=== PATIENT | male | born 1965 | race African-American/Black ===

== ENCOUNTER → 2016-08-30 | Outpatient (CLI) | payer OTHER ==
--- NOTE | 2016-08-30 12:54 | RAD ---
Scrotal ultrasound, 08/30/2016: History: Right testicular pain The right testicle measures 4.9 x 3.2 x 3.4 cm while the left testicle measures 5.3 x 3.7 x 2.6 cm. No testicular mass is seen. There is symmetric blood flow within the testicles. There is a large right hydrocele. No epididymal abnormality is detected. IMPRESSION: 1. No testicular abnormality is detected. 2. Large right hydrocele.
== END | disposition home or self-care (01) ==
LOC: US 09:17
PROVIDERS: ATTEND Family Medicine
DX: N50.811 Right testicular pain (principal)
CPT/HCPCS: 76870

== ENCOUNTER → 2017-08-20 | Outpatient (CLI) | payer BC | END | disposition home or self-care (01) | LOC: KCIC 12:49 | DX: J01.00 Acute maxillary sinusitis, unspecified (principal) | CPT/HCPCS: 70210 ==

== ENCOUNTER → 2017-12-21 | Day surgery (SDC) | payer BC ==
[~2017-12-21] MED LIST: LIDOCAINE 2% PF Vial for OR 5 ML VIAL.; PROPOFOL 40 ML IV
[2017-12-21 07:43] LABS: POC GLUCOSE 146 mg/dL (70-99)
== END | disposition home or self-care (01) ==
LOC: SURG 07:06
DX: Z12.11 Encounter for screening for malignant neoplasm of colon (principal); K57.30 Diverticulosis of large intestine without perforation or abscess without bleeding; K64.0 First degree hemorrhoids; I10 Essential (primary) hypertension; E11.9 Type 2 diabetes mellitus without complications; K21.9 Gastro-esophageal reflux disease without esophagitis; E78.5 Hyperlipidemia, unspecified; F32.9 Major depressive disorder, single episode, unspecified; F41.9 Anxiety disorder, unspecified; M19.90 Unspecified osteoarthritis, unspecified site; Z90.49 Acquired absence of other specified parts of digestive tract; Z98.890 Other specified postprocedural states; Z79.899 Other long term (current) drug therapy; Z79.84 Long term (current) use of oral hypoglycemic drugs; Z72.89 Other problems related to lifestyle; F17.200 Nicotine dependence, unspecified, uncomplicated; Z83.3 Family history of diabetes mellitus; Z82.49 Family history of ischemic heart disease and other diseases of the circulatory system
CPT/HCPCS: 45378; 82962; J2704

== ENCOUNTER → 2019-04-29 | Outpatient (CLI) | payer BC, OTHER ==
[2017-12-21 09:15] VITALS: BP 146/89
[~2019-04-29] MED LIST changes: +AMLO5TAB10 PO; +BUPR300T4 PO; +DAPA1TAB3 PO; -LIDOCAINE 2% PF Vial for OR 5 ML VIAL.; +LOSA100T14 PO; +MELO15TA23 PO; +PANT40GR PO; -PROPOFOL 40 ML IV; +TEST5GEL TP
--- NOTE | 2019-04-29 12:08 | CARD ---
MR#: [id number] Date of Study: 04/29/2019 Ordering Physician: KAT ESPINO, Referring Physician: KAT ESPINO, Tech: Jessica Carpio KRIS APPROVED REPORT EXAM: Two-dimensional and M-mode echocardiogram with Doppler and color Doppler. Other Information Quality : AverageHR: 66bpm Rhythm : NSR INDICATION Hypertension/HCVD 2D DIMENSIONS RVDd3.5 (2.9-3.5cm)Left Atrium(2D)3.5 (1.6-4.0cm) IVSd1.3 (0.7-1.1cm)Aortic Root(2D)3.3 (2.0-3.7cm) LVDd5.3 (3.9-5.9cm)LVOT Diameter2.0 (1.8-2.4cm) PWd1.2 (0.7-1.1cm)LVDs3.9 (2.5-4.0cm) FS (%) 25.2 %SV66.0 ml M-Mode DIMENSIONS Left Atrium(MM)3.91 (2.5-4.0cm)Aortic Root3.58 (2.2-3.7cm) Aortic Valve AoV Peak Dominic.171.6cm/sAoV VTI29.8cm AO Peak GR.11.8mmHgLVOT Peak Dominic.74.4cm/s AO Mean GR.5mmHgAVA (VMAX)1.42cm2 RACHELLE (VTI)1.50cm2 Mitral Valve MV E Xpqismnf32.7cm/sMV DECEL [id number] MV A Jzmyubbw30.1cm/sE/A Ratio1.2 Pulmonary Valve PV Peak Mvnlmiig175.5cm/s LEFT VENTRICLE The left ventricle is normal size. There is borderline concentric left ventricular hypertrophy. Left ventricle systolic function is normal. The Ejection Fraction is 55-60%. There is normal LV segmental wall motion. Transmitral Doppler flow pattern is Grade II-pseudonormal filling dynamics. RIGHT VENTRICLE The right ventricle is borderline dilated. There is normal right ventricular wall thickness. The righ t ventricular systolic function is normal. ATRIA The left atrium is borderline dilated. The right atrium is mildly dilated. The interatrial septum is intact with no evidence for an atrial septal defect or patent foramen ovale as noted on 2-D or Dopple r imaging. AORTIC VALVE The aortic valve is thickened but opens well. The aortic valve is trileaflet. Doppler and Color Flow revealed no significant aortic regurgitation. There is no significant aortic valvular stenosis. There is no aortic valvular vegetation. MITRAL VALVE The mitral valve is normal in structure and function. There is no evidence of mitral valve prolapse. There is no mitral valve stenosis. Doppler and Color Flow revealed no mitral valve regurgitation note d. TRICUSPID VALVE The tricuspid valve is normal in structure and function. Doppler and Color Flow revealed no tricuspid valve regurgitation noted. There is no tricuspid valve prolapse or vegetation. There is no tricuspid valve stenosis. PULMONIC VALVE The pulmonic valve is not well visualized. GREAT VESSELS The aortic root is normal in size. The ascending aorta is normal in size. The IVC is normal in size a nd collapses >50% with inspiration. PERICARDIAL EFFUSION There is no evidence of significant pericardial effusion. Critical Notification Critical Value: No <Conclusion> The left ventricle is normal size. Left ventricle systolic function is normal. The Ejection Fraction is 55-60%. There is borderline concentric left ventricular hypertrophy. There is no significant aortic valvular stenosis. Doppler and Color Flow revealed no significant aortic regurgitation. Doppler and Color Flow revealed no mitral valve regurgitation noted. Doppler and Color Flow revealed no tricuspid valve regurgitation noted. Signed by : Gelacio Simmons MD Electronically Approved : 04/29/2019 12:07:42
== END | disposition home or self-care (01) ==
LOC: ECHO 11:23
PROVIDERS: ATTEND Internal Medicine Cardiovascular Disease
DX: I11.9 Hypertensive heart disease without heart failure (principal); G47.33 Obstructive sleep apnea (adult) (pediatric)
CPT/HCPCS: 93306

== ENCOUNTER → 2019-05-01 | Outpatient (CLI) | payer BC, OTHER ==
[2017-12-21 09:15] VITALS: BP 146/89
--- NOTE | 2019-05-05 08:55 | RAD ---
MR#: [id number] Date of Study: 05/01/2019 Ordering Physician: KAT ESPINO, Referring Physician: KAT ESPINO, Tech: Dorita Bhatt RDMS, RVT, RTR APPROVED REPORT Patient Location: OUT-PATIENT Indications Uncontrolled HTN Technically difficult study. The right kidney demonstrates mild hydronephrosis. Spectral waveforms and color Doppler of the renal arteries suggest moderate renal artery stenosis on the right side. No significant renal artery stenos is on the left side. Renal to aortic ratios within normal limits at less than 3.5. Renal Artery Doppler Right Renal Artery Left Renal Arter y Mid 95.9/24.5 cm/secMid 163.5/60.2 cm/sec Distal 250.9/63.6 cm/secDistal 168.5/50.9 cm/sec Renal/Aorta Ratio 1.76Renal/Aorta Ratio 1.18 Rt. Segmental A. 62.6/17.1 cm/secLt. Segmental A. 47.8/18.5 cm/sec Renal Measurements RightLeft Kidney Vjoxwx55.4 cm cmKidney Vsulyy28.45 cm cm Right Additional FindingsLeft Additional Findings Critical Notification Critical Value: No <Conclusion> 1. Probable mild right-sided hydronephrosis 2. No critical renal artery stenosis identified, probable mild to moderate right-sided renal artery s tenosis Signed by : Kat Espino, Electronically Approved : 05/05/2019 08:55:17
== END | disposition home or self-care (01) ==
LOC: KCIC US 15:00
PROVIDERS: ATTEND Internal Medicine Cardiovascular Disease
DX: I10 Essential (primary) hypertension (principal)
CPT/HCPCS: 76770

== ENCOUNTER → 2019-08-18 | Outpatient (CLI) | payer BC, OTHER ==
[2017-12-21 09:15] VITALS: BP 146/89
[~2019-08-18] MED LIST changes: -BUPR300T4 PO; +BUPR300T92 PO; +IOHEXOL 300 MG/ML 100ML VIAL. IV ONE
--- NOTE | 2019-08-19 08:50 | KCIC ---
CT ANGIOGRAPHY ABD AND PELVIS dated 08/18/2019 3:30 PM Indication: Hypertension, evaluate for renal artery stenosis tobacco use. Comparison: No comparison is available. Technique: Contiguous axial imaging of the abdomen and pelvis performed following the intravenous administration of 100 cc Omnipaque 300. Study was performed as dedicated CTA with thin cut coronal and sagittal MIPS 3-D reconstructions. One or more of the following individualized dose reduction techniques were utilized for this examination: 1. Automated exposure control 2. Adjustment of the mA and/or kV according to patient size 3. Use of iterative reconstruction technique Findings: Contrast bolus is adequate. Abdominal aorta is normal in caliber. There is minimal scattered atherosclerotic plaquing. Minimal narrowing of the celiac artery origin, likely related to median arcuate ligament compression. The SMA is patent. There is minimal calcific plaque at the origin of the left renal artery which is otherwise patent. The right renal artery is patent. No apparent stenosis or aneurysm. ZAINAB is grossly patent. Mild scattered calcific plaque in the bilateral iliac vessels which are otherwise patent. Limited images of lung bases are clear. Heart size within normal limits. No pleural or pericardial effusion. Diffuse low-density of the liver suggesting mild fatty infiltration. No apparent mass. Biliary tree normal in caliber. There is a calcific stones in the gallbladder lumen. Spleen is normal in size. Pancreas, adrenal glands unremarkable. There is a prominent renal pelvis on the right. Kidneys are otherwise symmetric. No hydronephrosis. Unopacified GI tract is normal in caliber and contour. No focal bowel wall thickening. No inflammatory stranding in the mesentery. Scattered diverticula throughout the colon. No paracolonic inflammatory changes. No free fluid or lymphadenopathy. Images of pelvis show nondistended urinary bladder. Prostate gland normal in size. No free fluid or lymphadenopathy. Bone windows show no acute findings. There is grade 2 spondylolisthesis with bilateral spondylolysis at L5-S1. There is resultant severe left foraminal stenosis and moderate to severe right foraminal stenosis at this level. Multilevel spondylosis. IMPRESSION: 1. No evidence of hemodynamically significant renal artery stenosis. 2. Diverticulosis with no evidence of acute diverticulitis. 3. Cholelithiasis. 4. Grade 2 spondylolisthesis and bilateral spondylolysis at L5-S1. There is moderate to severe bilateral foraminal stenosis at this level. 5. Fatty infiltration of the liver. Electronically signed by: Chase Marin MD (08/19/2019 8:47 AM) [id number]
== END | disposition home or self-care (01) ==
LOC: KCIC CT 14:58
PROVIDERS: ATTEND Internal Medicine Cardiovascular Disease
DX: I70.1 Atherosclerosis of renal artery (principal); I70.0 Atherosclerosis of aorta; I77.1 Stricture of artery; I70.8 Atherosclerosis of other arteries; K80.20 Calculus of gallbladder without cholecystitis without obstruction; M43.17 Spondylolisthesis, lumbosacral region; M48.07 Spinal stenosis, lumbosacral region; K76.0 Fatty (change of) liver, not elsewhere classified
CPT/HCPCS: 74174; 82565; Q9967

== ENCOUNTER → 2020-06-08 | Outpatient (CLI) | payer BC ==
[2017-12-21 09:15] VITALS: BP 146/89
[~2020-06-08] MED LIST changes: +AMLO-186 PO; -AMLO5TAB10 PO; -IOHEXOL 300 MG/ML 100ML VIAL. IV ONE
--- NOTE | 2020-06-08 11:20 | KCIC ---
EXAM: Left calcaneus 2 views. HISTORY: Left heel pain. COMPARISON: None. FINDINGS: No fractures are identified. There are moderate posterior and small plantar calcaneal spurs. The subtalar joint appears normal. IMPRESSION: 1. Moderate posterior and small plantar calcaneal spurs. Electronically signed by: Mor Abraham MD (06/08/2020 11:17 AM) [facility]
== END ==
LOC: KCIC 10:37
PROVIDERS: ATTEND Nurse Practitioner Family
DX: M77.32 Calcaneal spur, left foot (principal); Z68.42 Body mass index [BMI] 45.0-49.9, adult
CPT/HCPCS: 73650

== ENCOUNTER → 2020-07-23 | Outpatient (CLI) | payer BC ==
[2017-12-21 09:15] VITALS: BP 146/89
--- NOTE | 2020-07-23 10:03 | KCIC ---
XR SHOULDER_LEFT 2+ VIEWS 07/23/2020 8:47 AM INDICATION: Left shoulder pain for a few days COMPARISON: None available. TECHNIQUE: 3 views of the left shoulder are provided. FINDINGS/ IMPRESSION: 1. No acute fracture or dislocation. There is remodeling of the distal margin of the clavicle which m ay be secondary to resorptive changes versus post surgical change. 2. Moderate to advanced left glenohumeral osteoarthrosis with joint space narrowing at the glenoid an d humeral osteophytosis. Subcortical cystic changes noted along the glenoid and humeral head. No acut e fracture or dislocation is identified. 3. Regional soft tissues are normal in appearance. Electronically signed by: Tanesha Gonzalez MD (07/23/2020 10:01 AM) [id number]
== END ==
LOC: KCIC 08:43
PROVIDERS: ATTEND Nurse Practitioner Family
DX: M19.012 Primary osteoarthritis, left shoulder (principal); M25.712 Osteophyte, left shoulder
CPT/HCPCS: 73030

== ENCOUNTER → 2020-12-27 | Outpatient (CLI) | payer BC ==
[2017-12-21 09:15] VITALS: BP 146/89
--- NOTE | 2020-12-27 13:35 | KCIC ---
EXAM: 3 Views Right Shoulder DATE: 12/27/2020 11:15 AM INDICATION: Reason: CHRONIC PAIN RT SHOULDER, LROM, NO INJURY / Spl. Instructions: / History: COMPARISON: No Prior FINDINGS: There is no evidence for acute fracture or dislocation. AC joint is congruent. AC joint and glenohume ral joint degenerative changes are seen. Cystic changes within the glenohumeral joint. Humeral head i s not high riding. IMPRESSION: 1. No acute fracture or dislocation. 2. Moderate right glenohumeral joint osteoarthritis. 3. Mild right AC joint degenerative change. Electronically signed by: Kong Mckeon MD (12/27/2020 1:33 PM) [id number]
== END ==
LOC: KCIC 11:11
PROVIDERS: ATTEND Nurse Practitioner Family
DX: M19.011 Primary osteoarthritis, right shoulder (principal); M25.811 Other specified joint disorders, right shoulder
CPT/HCPCS: 73030

== ENCOUNTER → 2021-04-20 | Outpatient (CLI) | payer BC ==
[2017-12-21 09:15] VITALS: BP 146/89
--- NOTE | 2021-04-20 15:39 | KCIC ---
EXAM: Chest, 2 views. HISTORY: Covid 19. Shortness of breath. COMPARISON: None. FINDINGS: 2 views of the chest are obtained. There is diffuse interstitial and alveolar infiltrate. T here is no consolidation, pleural effusion or pneumothorax. The heart is normal in size. IMPRESSION: Diffuse interstitial infiltrate. Follow-up to confirm resolution. Electronically signed by: Mary Matos MD (04/20/2021 3:37 PM) [facility]
== END ==
LOC: KCIC 14:14
PROVIDERS: ATTEND Nurse Practitioner Family
DX: U07.1 COVID-19 (principal); R91.8 Other nonspecific abnormal finding of lung field
CPT/HCPCS: 71046

== ENCOUNTER → 2021-05-03 | Outpatient (CLI) | payer BC ==
[2017-12-21 09:15] VITALS: BP 146/89
--- NOTE | 2021-05-03 11:45 | KCIC ---
EXAM: Chest, 2 views. HISTORY: Covid 19. COMPARISON: 04/20/2021 FINDINGS: 2 views of the chest are obtained. There has been slight interval decrease in diffuse inter stitial infiltrate. There is no consolidation, pleural effusion or pneumothorax. The heart is normal in size. IMPRESSION: Slight interval decrease in diffuse interstitial infiltrate. Electronically signed by: Mary Matos MD (05/03/2021 11:42 AM) [id number]
== END ==
LOC: KCIC 10:38
PROVIDERS: ATTEND Nurse Practitioner Family
DX: R91.8 Other nonspecific abnormal finding of lung field (principal); R93.89 Abnormal findings on diagnostic imaging of other specified body structures
CPT/HCPCS: 71046

== ENCOUNTER → 2021-05-17 | Outpatient (CLI) | payer BC ==
[2017-12-21 09:15] VITALS: BP 146/89
--- NOTE | 2021-05-17 16:42 | KCIC ---
AP and Lateral Views of the Chest 05/17/2021 12:51 PM Indication: Reason: SOA s/p COVID, Sept. 2020 / Spl. Instructions: / History: Comparison: Chest radiograph May 03, 2021 Findings: Overall diffuse interstitial thickening is similar to comparison exam. No pneumothorax or pleural effusion is seen. Heart size is top normal but stable. No acute osseous changes are identifie d in the interim. IMPRESSION: Stable radiographic appearance of the chest including persistent diffuse interstitial thi ckening Electronically signed by: Suraj Iglesias MD (05/17/2021 4:40 PM) [id number]
== END ==
LOC: KCIC 12:48
PROVIDERS: ATTEND Nurse Practitioner Family
DX: U07.1 COVID-19 (principal); J84.89 Other specified interstitial pulmonary diseases; R06.02 Shortness of breath
CPT/HCPCS: 71046

== ENCOUNTER → 2021-06-09 | Outpatient (CLI) | payer BC ==
[2017-12-21 09:15] VITALS: BP 146/89
--- NOTE | 2021-06-09 13:07 | KCIC ---
AP and Lateral Views of the Chest 06/09/2021 12:20 PM Indication: Reason: Dyspnea, hx. COVID 04/04/21 / Spl. Instructions: / History: Comparison: Chest radiograph May 17, 2019 Findings: Interstitial thickening is improved. No pneumothorax, effusion, or focal infiltrate is seen . Heart size is normal. Bony thorax is intact. IMPRESSION: Improved interstitial thickening in the interim. Electronically signed by: Suraj Iglesias MD (06/09/2021 1:05 PM) [id number]
== END ==
LOC: KCIC 11:30
DX: J84.89 Other specified interstitial pulmonary diseases (principal); R06.00 Dyspnea, unspecified; Z86.16 Personal history of COVID-19
CPT/HCPCS: 71046

== ENCOUNTER → 2021-11-29 | Outpatient (CLI) | payer BC ==
[2017-12-21 09:15] VITALS: BP 146/89
--- NOTE | 2021-11-30 09:07 | KCIC ---
XR CHEST 2V History: Reason: COUGH XS 3 WEEKS, COVID LAST YEAR / Spl. Instructions: / History: Comparison: June 09, 2021 Findings: No consolidation or pleural effusion. Normal heart size. No pneumothorax. Impression: 1. No acute cardiopulmonary process. Electronically signed by: Toñito Garzon DO (11/30/2021 9:04 AM) [id number]
== END ==
LOC: KCIC 15:30
PROVIDERS: ATTEND Nurse Practitioner Family
DX: R05.9 Cough, unspecified (principal)
CPT/HCPCS: 71046